=== PATIENT | female | born 1965 | race Asian ===

== ENCOUNTER 2018-07-24 06:09 | Day surgery (SDC) | payer OTHER ==
[2018-07-24] MEDS ORDERED: MIDAZOLAM 1 MG/ML 2 ML INJ (08:42)
[2018-07-24] MEDS ORDERED: FENTAnyl 50 MCG/ML VIAL (08:42)
== END 2018-07-24 13:40 | disposition home or self-care (01) ==
LOC: GIL 06:09
DX: Z12.11 Encounter for screening for malignant neoplasm of colon (principal); K64.8 Other hemorrhoids
CPT/HCPCS: 45378; 84703